=== PATIENT | male | born 1970 | race Caucasian/White ===

== ENCOUNTER 2017-08-07 20:44 | Emergency (ER) | payer BC ==
[2017-08-07 22:16] LABS: HEMOGLOBIN 16.3 gm/dl (14.0-17.5); RED BLOOD COUNT 5.45 M/UL (4.20-5.50); WHITE BLOOD COUNT 10.6 K/UL (4.5-11.0)
[2017-08-07 22:31] LABS: BUN/CREATININE RATIO 18 (0-10)
== END 2017-08-07 23:45 | disposition home or self-care (01) ==
LOC: ER1 20:44
PROVIDERS: Family Medicine
DX: R19.8 Other specified symptoms and signs involving the digestive system and abdomen (principal); R20.2 Paresthesia of skin; R53.83 Other fatigue; R73.9 Hyperglycemia, unspecified; R20.0 Anesthesia of skin; F17.200 Nicotine dependence, unspecified, uncomplicated
CPT/HCPCS: 36415; 80053; 81001; 83690; 84443; 84484; 85025; 93005; 99284